=== PATIENT | male | born 1985 | race Caucasian/White ===

== ENCOUNTER 2017-09-05 06:24 | Day surgery (SDC) | payer BC ==
[~2017-09-05] VITALS: Ht 180.3 cm; Wt 108.0 kg
[~2017-09-05 06:24] MED LIST: BUPIVACAINE/PF 0.25% ONE; BUPIVACAINE/PF 0.5% ONE; EPINEPHRINE 1 MG/ML, 1ML ONE
[2017-09-05] MEDS ORDERED: LACTATED RINGERS 1,000 ML IV SCH (07:19)
[2017-09-05 07:21] VITALS: BP 139/86
[2017-09-05] MEDS ORDERED: LIDOCAINE 1%, 2ML SQ PRN (07:30)
[2017-09-05] MEDS ORDERED: MIDAZOLAM 1 MG/ML, 2ML ONE (07:35)
[2017-09-05] MEDS ORDERED: NEOSTIGMINE 1 MG/ML, 10ML ONE (07:36)
[2017-09-05] MEDS ORDERED: CEFAZOLIN 1,000 MG ONE (07:36)
[2017-09-05] MEDS ORDERED: FENTANYL PF 250 MCG/5ML ONE (07:36)
[2017-09-05] MEDS ORDERED: GLYCOPYRROLATE 0.2MG/1ML, 5ML ONE (07:36)
[2017-09-05] MEDS ORDERED: SUCCINYLCHOLINE 20 MG/ML, 10ML ONE (07:36)
[2017-09-05] MEDS ORDERED: ROCURONIUM 10 MG/ML,10ML ONE (07:36)
[2017-09-05] MEDS ORDERED: PROPOFOL 10 MG/ML, 20ML ONE (07:36)
[2017-09-05] MEDS ORDERED: ONDANSETRON 2MG/ML, 2ML ONE (07:36)
[2017-09-05] MEDS ORDERED: DEXAMETHASONE 4 MG/ML, 1ML ONE (07:36)
[2017-09-05] MEDS ORDERED: KETOROLAC 30 MG/1 ML ONE (07:57)
[2017-09-05] MEDS ORDERED: CEFOTETAN 2 GM ONE (07:57)
[2017-09-05] MEDS ORDERED: OXYcodone 5 MG/5 ML ORAL.SOL UDC PO PRN (08:30)
[2017-09-05] MEDS ORDERED: hydrALAzine 20 MG/ML, 1ML IV PRN (08:30)
[2017-09-05] MEDS ORDERED: ONDANSETRON 2MG/ML, 2ML IVPush PRN (08:30)
[2017-09-05] MEDS ORDERED: FENTANYL PF 100 MCG/2ML IV PRN (08:30)
[2017-09-05] MEDS ORDERED: MEPERIDINE/PF 25MG/0.5ML IVPush PRN (08:30)
[2017-09-05] MEDS ORDERED: MIDAZOLAM 1 MG/ML, 2ML IV PRN (08:30)
[2017-09-05] MEDS ORDERED: LABETALOL 5MG/ML, 20ML IV PRN (08:30)
[2017-09-05] MEDS ORDERED: ALBUTEROL/IPRATROPIUM 2.5MG/0.5MG, 3 ML NPPB PRN (08:30)
[2017-09-05] MEDS ORDERED: ACETAMINOPHEN 325 MG TABLET PO PRN (08:30)
[2017-09-05] MEDS ORDERED: HYDROmorphone 1 MG/ML, 1ML IV PRN (08:30)
[2017-09-05] MEDS ORDERED: PROMETHAZINE 25 MG/ML, 1ML IV PRN (08:30)
[2017-09-05] MEDS ORDERED: DIAZEPAM 5 MG/ML, 2ML IVPush PRN (08:30)
[2017-09-05] MEDS ORDERED: HYDROmorphone 2 MG/ML, 1ML ONE (09:11)
[2017-09-05] MEDS ORDERED: FENTANYL PF 100 MCG/2ML ONE (09:11)
[2017-09-05] MEDS ORDERED: OXYcodone 5 MG/5 ML ORAL.SOL UDC ONE (09:12)
[2017-09-05] MEDS ORDERED: ACETAMINOPHEN 325 MG TABLET ONE (09:14)
== END 2017-09-05 10:50 ==
LOC: OUT 06:24
PROVIDERS: ATTEND Surgery
DX: K81.1 Chronic cholecystitis (principal); K43.9 Ventral hernia without obstruction or gangrene; Z72.89 Other problems related to lifestyle; F17.210 Nicotine dependence, cigarettes, uncomplicated
CPT/HCPCS: 47562; 49652; 88304; C1729; J0171; J0330; J0690; J1100; J1885; J2250; J2405; J2704; J2710; J3010; J3490; J7120; S0074